=== PATIENT | female | born 1965 | race Caucasian/White ===

== ENCOUNTER 2023-11-17 12:22 | Observation (INO) | payer MEDICARE, MEDICAID, SELFPAY ==
[2023-11-17] VITALS (10 sets, daily range): BP systolic 96–121; BP diastolic 55–72
[2023-11-17 08:08] LABS: Urine Albumin Negative (Neg - Trace); Urine Bilirubin Negative (Negative); Urine Character Clear (Clear); Urine Color Yellow; Urine Glucose Negative (Negative); Urine Ketone Negative (Negative); Urine Leukocyte Negative (Negative); Urine Nitrite Negative (Negative); Urine Occult Blood Negative (Negative); Urine Specific Gravity 1.015 (<1.030); Urine Urobilinogen Negative (Neg - 1+)
--- NOTE | 2023-11-17 08:15 | ED.GENMED ---
History of Present Illness
General
Chief Complaint: Abdominal Symptoms
Source: patient
Exam Limitations: none
Time Seen by Provider: 11/17/23 07:52
Nursing documentation reviewed up to this point in time: agreed with
Travel History
Have you had any contact with someone who has COVID-19?: Unable to Answer
Do you have any symptoms of coronavirus? Fever > 100 degrees, chills, cough, shortness of breath, sore throat, loss of taste or smell, muscle aches, or headache?: Unable to Answer
History of Present Illness
History of Present Illness:
58 yo female presents to the emergency department complaining of an episode of vomiting reported by the facility, and then passing out on the couch. No injury reported. Patient has dementia, Down syndrome, with limited verbal abilities.
Past History
Past History
ED Past Medical History: Other (Down syndrome, hyperthyroidism)
ED Past Surgical History: None
Social History
Tobacco: Non-smoker
Personal: Single
Living: assisted living
Review of Systems
Review of Systems
Allergies reviewed?: Yes
All Other Systems: Not applicable
Cardiac: Reports syncope
ABD/GI: Reports vomiting
Phy Exam
Physical Exam
Physical Exam:
Physical Exam
General: afebrile
Neck: supple. no meningeal signs. normal posterior pharynx
Heart: s1/s2 regular rate and rhythm, no murmur. equal radial
pulses.
HEENT: Pupils equal round reactive to light, EOMI
Lungs: no acute respiratory distress. clear bilaterally
Abdomen: normal bowel sounds. not tender. no CVAT
Neuro: alert, oriented to self. no focal neurological deficits cranial nerves II through XII intact
Skin: no rash
Psychiatric: well kept
Extremities: no edema. no calf tenderness. negative homans. good distal pulses
Course
Orders/Labs/Results
Orders:
Orders
11/17/23 07:34
Electrocardiogram (*1) Urgent
Reason for Study: Syncope
11/17/23 07:35
EKG- Treatment ONCE
11/17/23 07:57
CMP [Comprehensive Metabolic Panel] Urgent
Complete Blood Count/With Diff Urgent
Cortisol, Random Urgent
Comment: ADD ON
Lipase Urgent
TSH Reflex To Free T4 Urgent
Urinalysis Reflex To Culture Urgent
Date Specimen was Collected: 11/17/23
Time Specimen was Collected: 07:36
11/17/23 08:07
0.9% Sodium Chloride 500 ml [Nss] 500 ml IV BOLUS
11/17/23 10:46
Speech Therapy Eval & Treat Routine
Treatment: pt has a hx of dysphagia, dementia, DOWNS.
11/17/23 11:44
Admit/Transfer Patient As Directed
Co-Sign Provider:
Level of Care: Observation services
Assign to:: Telemetry
Physician / Group: Artis Liu
Diagnosis: Syncope
Reason for Telemetry: Syncope
Date to Stop Telemetry: 11/19/23
Time to Stop Telemetry: 11:00
11/17/23 11:46
Code Status As Directed
Resuscitation Status: Full Code
11/19/23 11:00
DC Protocol for Telemetry ONCE
Abnormal Lab Results
11/17/23
07:57
MCH 32.4 H pg
(27.0-31.0)
Abs Immat Gran (auto) 0.1 H 10^3/uL
(0-0.05)
Absolute Lymphs (auto) 0.8 L 10^3/uL
(1.2-3.4)
Immature Gran % 1.6 H %
(0-0.5)
Lymphocytes % 15.2 L %
(20.5-51.1)
AST 52 H U/L
(14-36)
ALT 77 H U/L
(0-35)
Alkaline Phosphatase 208 H U/L
(38-126)
11/17/23 07:57
11/17/23 07:57
Vital Signs
Initial and Last Documented VS:
Initial Vital Signs
Temp Pulse Resp BP Pulse Ox
97.1 F 60 20 104/55 94
11/17/23 07:35 11/17/23 07:35 11/17/23 07:35 11/17/23 07:35 11/17/23 07:35
Last Documented Vital Signs
Temp Pulse Resp BP Pulse Ox
97.1 F 59 16 115/62 94
11/17/23 07:35 11/17/23 13:00 11/17/23 13:00 11/17/23 13:00 11/17/23 07:35
MDM/Problems Addressed
Differential Diagnosis Includes:
Dysrhythmia, syncope, vasovagal
MDM/Problems Addressed:
58-year-old female with vomiting, bradycardia, syncope. Admit to hospitalist. IV fluids given.
Chronic conditions affecting care: Other (Dementia, Down syndrome)
*Radiology
Radiology exam reviewed: radiology read reviewed (CT head no acute findings)
*Pulse Oximetry
Patient hypoxic: no
*EKG
Interpreted by ED Provider?: Yes
EKG Intrepretation Date: 11/17/23
EKG Intrepretation Time: 07:42
Interpretation: abnormal
Comparison EKG: no comparison EKG present
Heart Rate: 57
Rate: bradycardiac
Rhythm: sinus
[place]: normal axis
Interval: normal interval
QRS Pattern: normal QRS
Ischemia: no ischemia
*Mind Reader Interpretation
Rate: bradycardiac
Interpretation: abnormal
Heart Rate: 55
Rhythm: sinus
*Critical Care Note
Total Time (30-74mins, 75-104mins- exclusive of procedures): Not Applicable
Patient Management
Social determinants of health affecting care: Living situation
ED Attending Note
-
Portions of this chart may have been created with voice recognition software.� Occasional wrong word or��sound alike� substitutions may have occurred due to the inherent limitations of voice recognition software.
Discharge Plan
Departure
Patient Disposition: Admit
Date of Disposition: 11/17/23
Time of Disposition: 10:39
Admit to: Telemetry
Presentation/result/management discussed w/ accepting MD/DO: Hospitalist
Patient with high blood pressure during this ER visit?: No
Condition: Good
Discharge Problem:
Syncope, Bradycardia, sinus, Vomiting
Interventions
Interventions:
*Risk Screen - Suicide Last Done: 11/17/23 08:34
*General Assessment Last Done: 11/17/23 08:34
*Neglect/Abuse Screening Last Done: 11/17/23 08:34
ED- Fall Risk Assessment Last Done: 11/17/23 08:05
*ED COVID-19 Vaccine History Last Done: 11/17/23 08:34
CA-Ueizwk-Sysvxyxlwk Assessment Last Done: 11/17/23 08:06
ED- Cardiac Assessment Last Done: 11/17/23 08:05
ED- Neurological Assessment Last Done: 11/17/23 08:06
[2023-11-17 08:19] LABS: % Basophils 0.9 % (0-2); % Eosinophils 1.6 % (0-6); % Immature Granulocytes 1.6 % (0-0.5); % Lymphocytes 15.2 % (20.5-51.1); % Monocytes 9.3 % (1.7-9.3); % Neutrophils 71.4 % (42.2-75.2); ALT (SGPT) 77 U/L (0-35); AST (SGOT) 52 U/L (14-36); Absolute Basophils 0.1 10^3/uL (0-0.2); Absolute Eosinophils 0.1 10^3/uL (0-0.7); Absolute Immature Granulocytes 0.1 10^3/uL (0-0.05); Absolute Lymphocytes 0.8 10^3/uL (1.2-3.4); Absolute Monocytes 0.5 10^3/uL (0.1-0.6); Absolute Neutrophils 3.9 10^3/uL (1.4-6.5); Albumin 3.7 g/dl (3.5-5.0); Alkaline Phosphatase 208 U/L (38-126); Blood Urea Nitrogen 13 mg/dl (7-17); Calcium 9.3 mg/dl (8.4-10.2); Carbon Dioxide 26 mmol/L (22-30); Chloride 105 mmol/L (98-107); Glucose 99 mg/dl (70-99); Hematocrit 42.5 % (37.0-47.0); Hemoglobin 14.6 g/dL (12.0-16.0); Lipase 58 U/L (23-300); Mean Corp Hgb Conc. 34.4 g/dL (33.0-37.0); Mean Corpuscular Hgb 32.4 pg (27.0-31.0); Mean Corpuscular Volume 94.4 fL (81.0-99.0); Mean Platelet Volume 9.6 fL (7.4-10.4); Nucleated Red Blood Cells % 0 %; Platelet Count 280 10^3/uL (130-400); Potassium 4.6 mmol/L (3.5-5.1); Red Cell Dist. Width 13.2 % (11.5-14.5); Sodium 140 mmol/L (135-145); Total Bilirubin 0.4 mg/dl (0.2-1.3); Total Protein 6.8 g/dl (6.3-8.2); White Blood Cell Count 5.5 10^3/uL (4.8-10.8); eGFR > 60.00
[2023-11-17] MEDS: NSS 500 IV (08:33)
--- NOTE | 2023-11-17 11:39 | HPS.HSE ---
Family Physician
-
Family Physician: Goldie Mcdonough
Chief Complaint
-
Syncope, vomiting episode
History of Present Illness
Patient is a 58-year-old female with past medical history of Down syndrome, dementia, psoriasis, GERD, mitral/aortic regurgitation, hypothyroidism was brought in from retirement after patient was noted to have witnessed syncope. Patient not able to
provide any information and history has been gathered by patient resident care director at bedside. Apparently patient was noted to having some shaking followed by patient becoming unresponsive at the end of having episode of vomiting. Patient regained
consciousness and for 5 minutes. Patient was brought in to ER by ambulance and was noted to be bradycardic in ER. SBP was in 100s, patient was provided 500ml NS bolus. In ER patient awake and waking up to physical stimuli.
According to retirement staff patient overall condition has been declining, patient is not interested in doing any physical therapy/activity. Patient able to speak although at times does not verbalize her needs. No behavioral issues reported.
Medical History
Past Medical History
Past Medical History: Reports Other
Additional Past Medical History:
Down syndrome, dementia, psoriasis, GERD, mitral/aortic regurgitation, hypothyroidism
Past Surgical History: Reports Other
Social History
Tobacco: Non-smoker
Alcohol: None
Drug: None
Living: Other ([facility])
Family History
Family History: Not pertinent
Allergies / Home Medications
Allergies reflects when Allergies were last updated in [facility].
Home Medications with original date entered in [facility]
Allergy/Medication List:
Allergies
Allergy/AdvReac Type Severity Reaction Status Date / Time
Penicillins Allergy Unknown Verified 11/17/23 07:43
Home Medications
acetaminophen 325 mg tablet 650 mg PO Q4HPRN PRN mild pain 11/17/23
alclometasone 0.05 % topical ointment 1 applic topical BIDPRN PRN itch/rash 11/17/23
bismuth subsalicylate 262 mg chewable tablet (Pepto-Bismol) 2 tab PO HSPRN PRN diarrhea/upset stomach 11/17/23
carbamide peroxide 6.5 % ear drops (Ear Wax Drops) 4 drp EACH EAR WE@199911/17/23
dextromethorphan-guaifenesin 30 mg-600 mg tablet extended [id number] hr 1 tab PO [id number] PRN cough and conjestion 11/17/23
docusate sodium 100 mg capsule 100 mg PO BID 11/17/23
fluticasone propionate 50 mcg/actuation nasal spray,suspension 2 spray intranasal HS 11/17/23
ibuprofen 400 mg tablet 400 mg PO Q6HPRN PRN mild pain 11/17/23
ketoconazole 2 % topical cream 1 applic topical BID 11/17/23
levothyroxine 75 mcg tablet 75 mcg PO DAILY 11/17/23
lorazepam 0.5 mg tablet 0.5 mg PO DAILYPRN PRN take prior to dental/vision procedure 11/17/23
neomycin-bacitracn Zn-polymyx 3.5 mg-400 unit-5,000 unit/gram top oint (Triple Antibiotic) 1 applic topical TIDPRN PRN prevent infection 11/17/23
polyethylene glycol 3350 17 gram oral powder packet 17 grams PO HS 11/17/23
risperidone 0.25 mg tablet 0.25 mg PO HS 11/17/23
tacrolimus 0.1 % topical ointment 1 applic topical BIDPRN PRN eczema 11/17/23
therapeutic multivitamin 1 tab PO HS 11/17/23
Review of Systems
-
Unable to obtain full review of systems at this time due to: Patient Non-verbal
Physical Exam
Vital Signs
Vital Signs
Temp Pulse Resp BP Pulse Ox
97.1 F 58 16 99/57 94
11/17/23 07:35 11/17/23 11:00 11/17/23 11:00 11/17/23 11:00 11/17/23 07:35
Physical Exam
General: No Apparent Distress
HEENT: No Oxygen
Respiratory: Clear
Cardiac: S1/S2, Regular Rhythm and Bradycardia; No Murmur or Rub
GI: Soft, Non Tender and Non Distended; No Organomegaly
Rectal: Deferred by Provider
Musculoskeletal: No Clubbing, No Cyanosis and No Edema
Skin: No Rash
Neuro: Awake and Alert
Psych: Calm
Laboratory Results
-
11/17/23 07:57
11/17/23 07:57
Laboratory Results
Total Bilirubin 0.4 mg/dl (0.2-1.3) 11/17/23 07:57
AST 52 U/L (14-36) H 11/17/23 07:57
ALT 77 U/L (0-35) H 11/17/23 07:57
Alkaline Phosphatase 208 U/L (38-126) H 11/17/23 07:57
Lipase 58 U/L (23-300) 11/17/23 07:57
Impression/Plan
-
1. Syncope
-Patient had some abnormal body movement, no tongue bite/no previous history of seizure.
-syncope could be cardiac in nature with patient having persistent sinus bradycardia. Patient with history of Down syndrome and at risk of high degree blocks.
-Patient also had episode of vomiting and syncope may have been vasovagal in nature as well.
-Patient not on any antihypertensive/rate control medication.
-Check TSH/free T4. Patient blood pressure soft check random cortisol as well.
-Patient got 500 mL NS in ER. maintain on slow IVF for now.
-Check ortho vitals if patient could co-operate.
-Continue monitoring in telemetry
-Cardiology asked for further evaluation
2. Nausea/vomiting
-episode likely with syncope related
-prn zofran, recheck QTc in AM.
-check cxr to r/o aspiration episode
3. Down syndrome
Dementia w/o behavioral problems
-Patient not able to voice her needs
-Need assistance with activity
-no behavioral problems
4. Dysphagia
-some concern of difficulty swallowing food reported by caregiver
-ST eval ordered
Psoriasis
GERD
Mitral/aortic regurgitation
Hypothyroidism
DVT PPX - scd
DNR/DNI
Total time spent : 80 mins
I personally saw and examined the patient.
I have reviewed all diagnostic interpretations and treatment plans as written.
Time includes patient management by me, time spent at the patients bedside, time to review lab and imaging results, discussing patient care, documentation in the medical record, and time spent with the family or caregiver and discussing care plan
with RN/Consultants.
--- NOTE | 2023-11-17 12:29 | EDRN ---
Family states that historically, Carmenza ' holds on to her urine'. Depends dry
--- NOTE | 2023-11-17 13:55 | CON.CAR ---
Addendum entered and electronically signed by Aj Best MD 11/17/23 15:17:
I saw and examined the patient.
The Director Of Assessing's note was reviewed and I agree with the note.
Comment:
GEN: No distress, awake, not following commands
HEENT: supple, anicteric, mmm
LUNGS: CTA, no wheezes/rales
CV: Reg, S1/S2, 1/6 syst LSB, no gallop
ABD: soft, BS+, NT/ND
EXT: No edema
NEURO: Gross non-focal
SKIN: No rash
plan:
She has a past medical history of Down syndrome, hypothyroidism, and dementia. No known history of congenital heart disease. She presents today with an episode of vomiting and syncope/unresponsiveness. She does have baseline dementia. She was
found initially to have heart rates in the 40s. Currently she is in a sinus bradycardia at 57 bpm. Per her sister she does have some sinus bradycardia at rest. She denies any chest pains or previous episodes like this.
At this point I would follow on telemetry, check TSH, and treat her conservatively. ? vagal episode
We will repeat an echocardiogram although she has no prior history of significant congenital heart disease.
Original Note:
Medical History
-
History of Present Illness:
HPI: Carmenza is a 58 year old female with PMH of down syndrome, hypothyroidism, dementia, GERD, mitral regurgitation, and aortic regurgitation who presented to [facility] after syncopal episode at her alf. She reportedly had an episode of
vomiting and then lost consciousness. Per her sister, patient was mostly unresponsive until she arrived in ER. Initial EKG showed sinus bradycardia with HR 57 beats per minute. While on telemetry, HR at times does drop into the 40s. No significant
pauses noted. She is not on any AV reese blockers. She has no significant cardiac history other than mild mitral and aortic regurgitation. She is not followed by cardiology. Family denies history of syncope. Workup otherwise in the ER unremarkable
with stable blood count and electrolytes. Her BP is stable on the lower side of normal, and she does not take any antihypertensive medications as OP. Cardiology consulted for evaluation given syncope and bradycardia
PMH:
Down syndrome
Hypothyroidism
Dementia
Dysphagia
Psoriasis
Mitral regurgitation
Aortic regurgitation
GERD
Past Medical History
Past Medical History: Other (In HPI)
Social History
Tobacco: Non-Smoker
Alcohol: None
Drug: None
Personal: Single
Living: Other (longterm)
Family History
Family History: Reviewed & Not Pertinent
Allergies / Home Medications
Allergy/AdvReac Type Severity Reaction Status Date / Time
Penicillins Allergy Unknown Verified 11/17/23 07:43
�Medication �Instructions �Recorded �Confirmed �Type
acetaminophen 325 mg tablet 650 mg PO Q4HPRN PRN mild pain 11/17/23 11/17/23 History
alclometasone 0.05 % topical 1 applic topical BIDPRN PRN 11/17/23 11/17/23 History
ointment itch/rash
bismuth subsalicylate 262 mg 2 tab PO HSPRN PRN diarrhea/upset 11/17/23 11/17/23 History
chewable tablet (Pepto-Bismol) stomach
carbamide peroxide 6.5 % ear drops 4 drp EACH EAR WE@199911/17/23 11/17/23 History
(Ear Wax Drops)
dextromethorphan-guaifenesin 30 1 tab PO [id number] PRN cough and 11/17/23 11/17/23 History
mg-600 mg tablet extended conjestion
[id number] hr
docusate sodium 100 mg capsule 100 mg PO BID 11/17/23 11/17/23 History
fluticasone propionate 50 2 spray intranasal HS 11/17/23 11/17/23 History
mcg/actuation nasal
spray,suspension
ibuprofen 400 mg tablet 400 mg PO Q6HPRN PRN mild pain 11/17/23 11/17/23 History
ketoconazole 2 % topical cream 1 applic topical BID 11/17/23 11/17/23 History
levothyroxine 75 mcg tablet 75 mcg PO DAILY 11/17/23 11/17/23 History
lorazepam 0.5 mg tablet 0.5 mg PO DAILYPRN PRN take prior 11/17/23 11/17/23 History
to dental/vision procedure
neomycin-bacitracn Zn-polymyx 3.5 1 applic topical TIDPRN PRN 11/17/23 11/17/23 History
mg-400 unit-5,000 unit/gram top prevent infection
oint (Triple Antibiotic)
polyethylene glycol 3350 17 gram 17 grams PO HS 11/17/23 11/17/23 History
oral powder packet
risperidone 0.25 mg tablet 0.25 mg PO HS 11/17/23 11/17/23 History
tacrolimus 0.1 % topical ointment 1 applic topical BIDPRN PRN eczema 11/17/23 11/17/23 History
therapeutic multivitamin 1 tab PO HS 11/17/23 11/17/23 History
Review of Systems
-
Unable to obtain full review of systems at this time due to: Dementia
History Source: Family (Sister, customer logistics manager at bedside)
All other systems: Negative unless noted
Physical Exam
Vital Signs
Temp Pulse Resp BP Pulse Ox
97.1 F 59 16 115/62 94
11/17/23 07:35 11/17/23 13:00 11/17/23 13:00 11/17/23 13:00 11/17/23 07:35
Lab Results
11/17/23 07:57
11/17/23 07:57
Physical Exam
General: Well Developed, Well Nourished and No Apparent Distress
HEENT: Normocephalic, Anicteric and Moist Mucous Membranes
Respiratory: Clear and Non Labored Respirations
Cardiac: S1/S2, Regular Rhythm and Murmur
Musculoskeletal: No Clubbing, No Cyanosis and No Edema
Skin: Warm
Neuro: Awake and Alert
Psych: Calm
Impression / Plan
-
PCP: Elisa Panchal
Roller Maker: None prior to arrival, initially seen by Dr. Best
Impression:
Vomiting
Syncope
Bradycardia
Elevated LFTs
Down syndrome
Hypothyroidism
Dementia
Dysphagia
Psoriasis
Mitral regurgitation
Aortic regurgitation
GERD
Echo 12/22/2020: EF 60%, no RWMA, mild MR, mild AR, mild TR, estimated PAP 34-39 mmHg
Echo 11/17/2023: Study pending
Plan:
-Presented after syncopal episode. Reportedly was vomiting and then lost consciousness. No known h/o syncope.
-Bradycardia noted with HR into the 40s at times. Not on any AV reese blockers as OP and would continue to avoid for now.
-Follow on telemetry. May consider OP monitor if persistent bradycardia noted.
-Check TSH. On levothyroxine as OP.
-K stable at 4.6.
-Prior echo w/ preserved EF and mild MR, mild AR. Repeat this admission.
-Check orthostatic VS. BP borderline, not on any antihypertensives.
-CT of head pending. Await results.
-Elevated LFTs noted w/ reported episode of vomiting. Defer to primary service. Given fluid bolus in ER.
HPI: Carmenza is a 58 year old female with PMH of down syndrome, hypothyroidism, dementia, GERD, mitral regurgitation, and aortic regurgitation who presented to [facility] after syncopal episode at her alf. She reportedly had an episode of
vomiting and then lost consciousness. Per her sister, patient was mostly unresponsive until she arrived in ER. Initial EKG showed sinus bradycardia with HR 57 beats per minute. While on telemetry, HR at times does drop into the 40s. No significant
pauses noted. She is not on any AV reese blockers. She has no significant cardiac history other than mild mitral and aortic regurgitation. She is not followed by cardiology. Family denies history of syncope. Workup otherwise in the ER unremarkable
with stable blood count and electrolytes. Her BP is stable on the lower side of normal, and she does not take any antihypertensive medications as OP. Cardiology consulted for evaluation given syncope and bradycardia
Data Reviewed
-
EKG: Tracing Personally Visualized and interpreted
Labs: Labs Reviewed by me
Old Records: Reviewed
[2023-11-17 15:07] LABS: TSH Reflex To Free T4 3.17 uIU/ml (0.47-4.68)
[2023-11-17 16:46] LABS: Cortisol, Random 17.6 ug/dl
[2023-11-17] MEDS: NSS 1000 IV (17:03)
[2023-11-17] MEDS: COLACE 100 MG PO (20:43)
[2023-11-17] MEDS: NIZORAL 2% CREAM 1 APPLIC TOPICAL (20:43)
[2023-11-17] MEDS: RISPERDAL 0.25 MG PO (21:22)
[2023-11-18] VITALS (7 sets, daily range): BP systolic 100–128; BP diastolic 45–69; PULSE 56–69
[2023-11-18] MEDS: SYNTHROID PO (05:24)
[2023-11-18 08:23] LABS: Hemoglobin 13.2 g/dL (12.0-16.0); Mean Corp Hgb Conc. 33.8 g/dL (33.0-37.0); Mean Corpuscular Hgb 32.3 pg (27.0-31.0); Mean Corpuscular Volume 95.4 fL (81.0-99.0); Mean Platelet Volume 9.6 fL (7.4-10.4); Platelet Count 295 10^3/uL (130-400); Red Blood Cell Count 4.09 10^6/uL (4.20-5.40); Red Cell Dist. Width 13.2 % (11.5-14.5); White Blood Cell Count 4.4 10^3/uL (4.8-10.8)
[2023-11-18] MEDS: NIZORAL 2% CREAM 1 APPLIC TOPICAL ×2 (08:31→22:28)
[2023-11-18] MEDS: COLACE 100 MG PO ×2 (08:31→22:28)
[2023-11-18] MEDS: NSS 1000 IV (08:32)
[2023-11-18 08:54] LABS: Blood Urea Nitrogen 11 mg/dl (7-17); Carbon Dioxide 28 mmol/L (22-30); Chloride 104 mmol/L (98-107); Estimated Creatinine Clearance 66 ml/min; Glucose 84 mg/dl (70-99); Sodium 139 mmol/L (135-145); eGFR > 60.00
[2023-11-18 09:04] LABS: Calcium 8.9 mg/dl (8.4-10.2); Potassium 4.4 mmol/L (3.5-5.1)
--- NOTE | 2023-11-18 09:23 | W.PN.CARDCBS ---
Addendum entered and electronically signed by Azael Stewart MD 11/18/23 15:59:
She appears comfortable, watching 'Frozen' no complaints, verbalizes but hard to understand, smiles
PMH/PSH/FH/SH: Reviewed
Allergies: Penicillin
Outpatient cardiac meds: None
Current medications: Risperdal Colace levothyroxine
Review of systems: Not readily obtainable
106/58, pulse 59, respiratory rate 18, weight is 49.1 kg as of yesterday, head neck exam unremarkable, lungs are clear, regular rate and rhythm, no murmurs JVD okay, extremities without clubbing cyanosis or edema, pulses palpable, neuro nonfocal
Hemoglobin 13.2, BUN and creatinine 11 and 0.6 with a potassium of 4.4, AST and ALT are 43/67 with alk phos of 204, normal bilirubin
Echo: EF 55-60%, moderate AI, mild MR, moderate TR, pulmonary artery systolic pressure 30-35 mmHg
Telemetry: Periods of bradycardia 40 and sometimes less, probably during sleep
Plan:
Despite presumed vasovagal syncope, she appears stable. She is on no AV reese blocking agents.
At this point, given that she is clinically well, our strategy should be conservative.
Would not make any changes in her regimen. Would not investigate further. I am not certain that she would wear a monitor for a week or 2.
Okay to proceed with discharge planning.
At this point, in the absence of further episodes she does not need cardiac follow-up. If additional episodes of syncope or other cardiac issues occur, we can reevaluate her as an outpatient.
We will sign off, please call if questions.
Original Note:
Today's Communication / Plan
-
Continue to follow on telemetry while admitted
Avoid AV reese blockers
Check orthostatic VS if able
Impression / Plan
-
PCP: Elisa Panchal
Phlebotomy Director: None prior to arrival, initially seen by Dr. Best
Impression:
Vomiting
Syncope
Bradycardia
Elevated LFTs
Down syndrome
Hypothyroidism
Dementia
Dysphagia
Psoriasis
Mitral regurgitation
Aortic regurgitation
GERD
Echo 12/22/2020: EF 60%, no RWMA, mild MR, mild AR, mild TR, estimated PAP 34-39 mmHg
Echo 11/17/2023: EF 55 to 60%, moderate AI, moderate TR, trace VA
Plan:
-Presented after syncopal episode. Reportedly was vomiting and then lost consciousness. No known h/o syncope.
-Bradycardia noted with HR into the 40s at times. Not on any AV reese blockers as OP and would continue to avoid.
-On review of telemetry overnight, still w/ episodes of bradycardia w/ HR into 30s and 40s at times. Patient seems to be asymptomatic with these episodes
-TSH within normal limits at 3.17, continue levothyroxine. K stable.
-Echo 11/16 with preserved EF and moderate AI, slightly progressed compared to 2020.
-Check orthostatic VS if able. BP borderline, not on any antihypertensives.
-CT of head negative for acute intracranial abnormality.
-Elevated LFTs noted w/ reported episode of vomiting. Defer to primary service.
HPI: Carmenza is a 58 year old female with PMH of down syndrome, hypothyroidism, dementia, GERD, mitral regurgitation, and aortic regurgitation who presented to [facility] after syncopal episode at her longterm. She reportedly had an episode of
vomiting and then lost consciousness. Per her sister, patient was mostly unresponsive until she arrived in ER. Initial EKG showed sinus bradycardia with HR 57 beats per minute. While on telemetry, HR at times does drop into the 40s. No significant
pauses noted. She is not on any AV reese blockers. She has no significant cardiac history other than mild mitral and aortic regurgitation. She is not followed by cardiology. Family denies history of syncope. Workup otherwise in the ER unremarkable
with stable blood count and electrolytes. Her BP is stable on the lower side of normal, and she does not take any antihypertensive medications as OP. Cardiology consulted for evaluation given syncope and bradycardia
Progress Note - Phlebotomy Director
Subjective
Date of Service: November 18, 2023
No complaints, resting comfortably in bed.
Objective
Labs:
11/18/23 08:01
11/18/23 08:01
Labs
Hgb 13.2 g/dL (12.0-16.0) 11/18/23 08:01
Hct 39.0 % (37.0-47.0) 11/18/23 08:01
Plt Count 295 10^3/uL (130-400) 11/18/23 08:01
Sodium 139 mmol/L (135-145) 11/18/23 08:01
Potassium 4.4 mmol/L (3.5-5.1) 11/18/23 08:01
BUN 11 mg/dl (7-17) 11/18/23 08:01
Creatinine 0.6 mg/dL (0.6-1.0) 11/18/23 08:01
Glucose 84 mg/dl (70-99) 11/18/23 08:01
Vital Signs and I&O:
Vital Signs
Temp Pulse Resp BP Pulse Ox
98.6 F 50 18 111/57 97
11/18/23 07:30 11/18/23 07:30 11/18/23 07:30 11/18/23 07:30 11/18/23 07:30
Vital Signs
Temp Pulse Resp BP Pulse Ox
98.6 F 50 18 111/57 97
11/18/23 07:30 11/18/23 07:30 11/18/23 07:30 11/18/23 07:30 11/18/23 07:30
Intake & Output
11/16/23 11/17/23 11/18/23 11/19/23
06:59 06:59 06:59 06:59
Intake Total 120 / 120
Output Total 800 / 800
Balance -680 / -680
Physical Exam
Physical Exam
GEN: No distress, awake, alert, resting comfortably in bed
HEENT: supple, anicteric, mmm
LUNGS: CTA b/l, no wheezes/rales
CV: Reg, S1/S2, 1/6 murmur
EXT: No clubbing, cyanosis, or edema
NEURO: Gross non-focal
SKIN: Warm, dry, no rash
--- NOTE | 2023-11-18 10:55 | PTOTSP ---
Dysphagia Evaluation
Patient with history of mild-moderate oral and mild pharyngeal dysphagia, signs of esophageal dysphagia, but no aspiration on last known outpatient video swallow study 04/25/2015. Ground solids, thin liquids recommended at that time. Risk factors
for dysphagia: Down syndrome, dementia, GERD.
Suspect patient's oral stage of swallowing is at baseline. CXR with 'pneumonia lower right lung'. No signs concerning for aspiration observed. Vomiting episode noted prior to admission. Cannot r/o worsened pharyngeal dysphagia bedside. If
concerned for silent aspiration consider ordering video swallow study pending GOC.
Recommend:
1. IDDSI Level 5 Minced/Moist, IDDSI Level 0 Thin Liquids via CUP
2. Medications - in puree (crushed)
3. Strategies: upright to 90 degrees, small single sips/bites, slow rate, ensure patient swallows before next sip/bite, alternate solids/liquids, remain upright for 30 minutes after PO intake as a reflux precaution
4. Consider video swallow study pending GOC.
[2023-11-18 11:31] LABS: ALT (SGPT) 67 U/L (0-35); AST (SGOT) 43 U/L (14-36); Albumin 3.4 g/dl (3.5-5.0); Alkaline Phosphatase 204 U/L (38-126); Direct Bilirubin 0.3 mg/dl (0.0-0.4); Total Bilirubin 0.5 mg/dl (0.2-1.3); Total Protein 6.3 g/dl (6.3-8.2)
--- NOTE | 2023-11-18 13:07 | CM ---
Addendum entered by Cheryl Wood 11/18/23 16:02:
PT/OT jud (P)
Braulio updated re possible d/c back to [facility] tomorrow.
Spency will be secondary special education teacher, please call her if patient is or is not being d/c, phone# [phone].
[facility]
Report: Spency at phone# [phone]

Address for [facility]: [address] [place] [id number] (address on the demographics is the office)
ambulance transport forms on chart.
Original Note:
Patient seen bedside with Nurse from [facility] (snf)
IA completed.
Patient is a resident at [facility], require 24 hour care.
patient has a sister and Nurse Braulio will keep her updated.
Patient ambulates with much encouragement with hand held assist of 1.
Patient does have difficulty with thresholds (even if they are flat, just let her know its ok).
Patient also is transported via transport chair.
Patient does not feed herself, Per her nurse Braulio, patient has no difficulty swallowing.
Patient is incontinent of B+B, wears a depends.
Patient has difficulty seeing due to cataracts and eye MD does not think patient is a good candidate for surgery.
Patient has recently started with calling out for no reason and has been started on Risperdal.
PCP: mobile MD thru [place] [facility]- Elisa ZARATE [phone] (Monalisa will answer her phone)
Pharmacy: [facility] [place]
Updates to RN from [facility]- Braulio- office # [phone] extension [phone] to leave a message, or to speak with her cell phone # [phone] she is available M-F.
Weekend RN will be Spency and her number is [phone]. Leslie will call for updates with nursing tomorrow between -12.
CM number given to Braulio.
[facility]
Report# Braulio [phone] M-F, Spency on the weekend [phone]
(goes directly to nursing)
Per Braulio, they would prefer a Tuesday transfer, no nurse onsite over the weekend, but could make arrangements if need be.
Patient will require ambulance transport on d/c.
[facility] form completed.
--- NOTE | 2023-11-18 15:10 | W.PN.HOSP.TC ---
Today's Communication/Plan
-
see note
Assessment / Plan
Assessment / Plan
1. Syncope - Presumed vasovagal
-Patient had some abnormal body movement, no tongue bite/no previous history of seizure.
-syncope could be cardiac in nature with patient having persistent sinus bradycardia. Patient with history of Down syndrome and at risk of high degree blocks.
-Patient also had episode of vomiting and syncope may have been vasovagal in nature as well.
-Patient not on any antihypertensive/rate control medication.
-TSH and random cortisol wnl.
-Patient got 500 mL NS in ER. maintain on slow IVF for now.
-Partial ortho vitals with supine to sitting negative.
-No telemetry events
-TTE showed preserved EF, no valvulopathy
2. Nausea/vomiting - resolved
-episode likely with syncope related
-prn Zofran, recheck QTc in AM.
-check cxr to r/o aspiration episode
3. Down syndrome
Dementia w/o behavioral problems
-Patient not able to voice her needs
-Need assistance with activity
-no behavioral problems
4. Dysphagia
-some concern of difficulty swallowing food reported by caregiver
-ST eval cleared. on IDDSI 5 and thin liquid
5. LFT elevation
-trending down
-not on statin
-check Liver abd US with episode of vomiting
Psoriasis
GERD
Mitral/aortic regurgitation
Hypothyroidism
DVT PPX - scd
DNR/DNI
Anticipated Discharge: Within 24 hours
Subjective/Interval History
-
Date of Service: November 18, 2023
no problems overnight
denies of having any problems
Objective Data
-
Labs:
Laboratory Results
11/18/23 11/18/23
08:01 10:01
WBC 4.4 L
Hgb 13.2
Hct 39.0
Plt Count 295
Sodium 139
Potassium 4.4
Chloride 104
Carbon Dioxide 28
BUN 11
Creatinine 0.6
Glucose 84
Calcium 8.9
Total Bilirubin 0.5 Cancelled
AST 43 H Cancelled
ALT 67 H Cancelled
Alkaline Phosphatase 204 H Cancelled
Vital Signs:
Vital Signs
Temp Pulse Resp BP Pulse Ox
98.4 F 59 18 106/58 91
11/18/23 11:42 11/18/23 11:42 11/18/23 11:42 11/18/23 11:42 11/18/23 11:42
I&O
11/17/23 11/18/23 11/19/23
06:59 06:59 06:59
Intake Total 120 / 120 840 / 840
Output Total 800 / 800
Balance -680 / -680 840 / 840
Review of Systems
-
Unable to obtain full review of systems at this time due to: Dementia and Acuity
Physical Exam
-
General: Comfortable
HEENT: Negative Oxygen
Respiratory: Clear to Auscultation
Cardiac: Regular Rhythm and S1/S2; Negative Murmur or Rub
GI: Soft, Nontender and Nondistended
Musculoskeletal: No Edema
Neuro: Awake and Alert
Psych: Calm
[2023-11-18] MEDS: RISPERDAL 0.25 MG PO (22:30)
[2023-11-19 03:00] VITALS: BP 99/56
[2023-11-19] MEDS: SYNTHROID 75 MCG PO (05:55)
[2023-11-19 07:35] VITALS: BP 122/66
[2023-11-19] MEDS: NIZORAL 2% CREAM 1 APPLIC TOPICAL (08:38)
[2023-11-19] MEDS: COLACE 100 MG PO (08:39)
[2023-11-19 11:00] VITALS: BP 108/62
[2023-11-19 11:49] VITALS: BP 98/59
[2023-11-19 11:53] VITALS: BP 98/59
--- NOTE | 2023-11-19 12:01 | W.PN.HOSP.TC ---
Today's Communication/Plan
-
d/c to assisted
Assessment / Plan
Assessment / Plan
1. Syncope - Presumed vasovagal
-Patient had some abnormal body movement, no tongue bite/no previous history of seizure.
-syncope could be cardiac in nature with patient having persistent sinus bradycardia. Patient with history of Down syndrome and at risk of high degree blocks.
-Patient also had episode of vomiting and syncope may have been vasovagal in nature as well.
-Patient not on any antihypertensive/rate control medication.
-TSH and random cortisol wnl.
-Patient got 500 mL NS in ER. maintain on slow IVF for now.
-Partial ortho vitals with supine to sitting negative.
-No telemetry events
-TTE showed preserved EF, no valvulopathy
2. Nausea/vomiting - resolved
-episode likely with syncope related
-prn Zofran, recheck QTc in AM.
-check cxr to r/o aspiration episode
3. Down syndrome
Dementia w/o behavioral problems
-Patient not able to voice her needs
-Need assistance with activity
-no behavioral problems
4. Dysphagia
-some concern of difficulty swallowing food reported by caregiver
-ST eval cleared. on IDDSI 5 and thin liquid
5. LFT elevation
Cholelithiasis
-trending down
-not on statin
-Liver/GB showing cholelithiasis. CBD 5 mm.
-no tenderness on RUQ exam, no concern angelina.
Psoriasis
GERD
Mitral/aortic regurgitation
Hypothyroidism
DVT PPX - scd
DNR/DNI
More than 30 minutes spent in discharge including
Final examination of the patient
Summarizing hospital stay
Instructions for continuing care to all relevant caregivers
Preparation of discharge records, prescriptions, and referral forms
Total time spent (in minutes): 38 mins
Anticipated Discharge: Today
Subjective/Interval History
-
Date of Service: November 19, 2023
no reported nausea/vomiting
no other issues
Objective Data
-
Vital Signs:
Vital Signs
Temp Pulse Resp BP Pulse Ox
98.1 F 58 18 108/62 98
11/19/23 11:00 11/19/23 11:00 11/19/23 11:00 11/19/23 11:00 11/19/23 11:00
I&O
11/18/23 11/19/23 11/20/23
06:59 06:59 06:59
Intake Total 120 / 120 2319
Output Total 800 / 800
Balance -680 / -680 2319
Review of Systems
-
Unable to obtain full review of systems at this time due to: Dementia and Acuity
Physical Exam
-
General: Comfortable
HEENT: Negative Oxygen
Respiratory: Clear to Auscultation
Cardiac: Regular Rhythm and S1/S2; Negative Murmur or Rub
GI: Soft, Nontender and Nondistended
Musculoskeletal: No Edema
Neuro: Awake and Alert
Psych: Calm
--- NOTE | 2023-11-19 12:15 | CM ---
Chart reviewed. Plan for discharge today back to [facility]. Message left for Spency to notify of discharge. CM remains available.
[facility]
Report: Spency at phone# [phone]
[2023-11-19 15:30] VITALS: BP 106/64
--- NOTE | 2023-11-20 14:45 | W.DCSUMMARY ---
Discharge Summary
Discharge Data
Date of Admission: 11/17/23
Date of Discharge: 11/19/23
-
Pending Results: No
Hospital Course
Discharging Physician : Dr Artis Liu
Disposition : nursing home
Primary care physician : Dr Goldie Mcdonough
Principal Discharge diagnosis :
Syncope, presumed vasovagal
Episode of nausea/vomiting
Elevated liver enzymes
Chronic Discharge diagnosis :
Down syndrome
Dementia without behavioral problems
History of psoriasis
Gastroesophageal reflux disease
Mitral/aortic regurgitation
Hypothyroidism
Hospital Course :
Patient is 58-year-old female who was brought in from correction after patient was noted to having brief episode of syncope and vomiting episode. Patient was noted to be bradycardic in ER. No previous history of syncope and although there was some
body movement there was no true seizure-like activity noted. Patient does not have any history of previous seizure. Clinically this was felt to be vasovagal in nature. Cardiology was involved in care for evaluation patient had
echocardiogram/overnight telemetry monitoring/TSH/random cortisol check/orthostatic vitals checked and all were negative. Patient did not have any further problems and was discharged to correction.
Patient also noted to be having minimal transaminitis, with reported nausea vomiting and right upper quadrant ultrasound was done which showed cholelithiasis without signs of cholecystitis. LFTs are trending down. No further intervention required.
Important imaging findings :
None
Procedure findings :
None
Discharge Plan
-
Patient Disposition: Other
Discharge Diagnosis/Procedures: Vasovagal syncope, Bradycardia
Condition: Fair
Diet: Regular
Activity: As tolerated
Driving Restrictions: No driving
Referrals:
Goldie Mcdonough, DO [Family Provider] - in one week
Prescriptions:
Continued
acetaminophen 325 mg Tablet
650 mg PO Q4HPRN PRN (Reason: mild pain)
Triple Antibiotic 3.5mg-400 unit- 5,000 unit/gram Ointment
1 applic TOPICAL TIDPRN PRN (Reason: prevent infection)
Rx Instructions:
apply to cuts and abrasions
risperidone 0.25 mg Tablet
0.25 mg PO HS
therapeutic multivitamin Tablet
1 tab PO HS
levothyroxine 75 mcg Tablet
75 mcg PO DAILY
lorazepam 0.5 mg Tablet
0.5 mg PO DAILYPRN PRN (Reason: take prior to dental/vision procedure)
tacrolimus 0.1 % Ointment
1 applic TOPICAL BIDPRN PRN (Reason: eczema)
ibuprofen 400 mg Tablet
400 mg PO Q6HPRN PRN (Reason: mild pain)
Ear Wax Drops 6.5 % Drops
4 drp EACH EAR WE@2000
docusate sodium 100 mg Capsule
100 mg PO BID
bismuth subsalicylate [Pepto-Bismol] 262 mg Tablet,Chewable
2 tab PO HSPRN PRN (Reason: diarrhea/upset stomach)
alclometasone 0.05 % Ointment
1 applic TOPICAL BIDPRN PRN (Reason: itch/rash)
Rx Instructions:
apply to arms and neck
dextromethorphan-guaifenesin 30-600 mg Tablet Extended Release 12 Hr
1 tab PO [id number] PRN (Reason: cough and conjestion)
ketoconazole 2 % Cream
1 applic TOPICAL BID
Rx Instructions:
apply to plantar and dorsal of both feet
fluticasone propionate 50 mcg/actuation [place],Suspension
2 spray INTRANASAL HS
polyethylene glycol 3350 17 GRAMS powder in packet
17 grams PO HS
Discharge Orders:
Discharge Patient (As Directed); Ordered 11/19/23
Ordered By: Artis Liu
Discharge Date and Time
Discharge Date/Time: 11/19/23 16:12
Print Language: KENYAN
== END 2023-11-19 16:12 | disposition home or self-care (01) ==
LOC: 4 WEST ACU 12:22
PROVIDERS: ADMITTING PHYSICIAN Hospitalist; CONSULT PHYSICIAN Internal Medicine Cardiovascular Disease; EMERGENCY PHYSICIAN Emergency Medicine; FAMILY PHYSICIAN Internal Medicine
DX: R55 Syncope and collapse (principal); R00.1 Bradycardia, unspecified; R10.9 Unspecified abdominal pain; Q90.9 Down syndrome, unspecified; G31.9 Degenerative disease of nervous system, unspecified; L40.9 Psoriasis, unspecified; K80.20 Calculus of gallbladder without cholecystitis without obstruction; E03.9 Hypothyroidism, unspecified; K21.9 Gastro-esophageal reflux disease without esophagitis; R13.10 Dysphagia, unspecified; F03.90 Unspecified dementia, unspecified severity, without behavioral disturbance, psychotic disturbance, mood disturbance, and anxiety; I08.0 Rheumatic disorders of both mitral and aortic valves; Z66 Do not resuscitate; Z88.0 Allergy status to penicillin; Z79.890 Hormone replacement therapy
CPT/HCPCS: 51701; 70450; 71045; 76700; 80053; 81003; 82248; 82533; 83690; 84443; 85025; 85027; 87070; 87147; 92610; 93005; 93306; 96360; 97162; 97166; 99285; G0378

== ENCOUNTER 2023-12-09 12:14 | Inpatient (IN) | payer MEDICARE, MEDICAID, SELFPAY ==
[2023-12-07] VITALS (9 sets, daily range): BP systolic 110–137; BP diastolic 52–70
[2023-12-07 11:30] LABS: Glucose - Point of Care 92 mg/dl (70-99)
--- NOTE | 2023-12-07 11:31 | ED.GENMED ---
History of Present Illness
General
Chief Complaint: Change in Mental Status
Source: patient
Exam Limitations: none
Time Seen by Provider: 12/07/23 11:26
Nursing documentation reviewed up to this point in time: agreed with
History of Present Illness
History of Present Illness:
58-year-old female presents emergency room due to a syncope episode. She has Down syndrome and dementia. Is unclear how long she was down after syncope.
Past History
Past History
ED Past Medical History: Other (Down syndrome, hyperthyroidism)
ED Past Surgical History: None
Social History
Tobacco: Non-smoker
Personal: Single
Living: assisted living
Review of Systems
Review of Systems
Allergies reviewed?: Yes
All Other Systems: Not applicable
Constitutional: Reports no symptoms
EENT: Reports no symptoms
Respiratory: Reports no symptoms
Cardiac: Reports syncope
ABD/GI: Reports no symptoms
: Reports no symptoms
Musculoskeletal: Reports no symptoms
Skin: Reports no symptoms
Neurological: Reports other (Nonverbal, moves all extremities)
Endocrine: Reports no symptoms
Hematologic/Lymphatic: Reports no symptoms
Psychiatric: Reports no symptoms
Phy Exam
Physical Exam
Physical Exam:
Physical Exam
General: no apparent distress, not acutely ill
Neck: supple. no meningeal signs. normal posterior pharynx
Heart: s1/s2 regular rate and rhythm, no murmur. equal radial
pulses.
HEENT: Pupils equal round reactive to light, EOMI
Lungs: no acute respiratory distress. clear bilaterally
Abdomen: normal bowel sounds. not tender. no CVAT
Neuro: alert, moves all extremities. no focal neurological deficits cranial nerves II through XII intact
Skin: no rash
Psychiatric: well kept. interactive and cooperative
Extremities: no edema. no calf tenderness. negative homans. good distal pulses
Course
Orders/Labs/Results
Orders:
Orders
12/07/23 11:28
EKG [Electrocardiogram (*1)] Urgent
Reason for Study: Fatigue / Weakness
CT Head W/o Iv Contrast Urgent
Comment:
Reason For Exam: syncope, altered mental status
Cardiac Monitoring- Treatment ONCE
EKG- Treatment ONCE
Pulse Ox/cont/shift [RESP] Stat
Quantity: 1
12/07/23 11:30
Electrocardiogram (*1) Stat
Reason for Study: Other
Other Reason for Exam: neuro symptoms
EKG- Treatment ONCE
12/07/23 11:49
Basic Metabolic Panel Urgent
Complete Blood Count/With Diff Urgent
Abnormal Lab Results
12/07/23
11:49
MCH 32.4 H pg
(27.0-31.0)
MPV 10.7 H fL
(7.4-10.4)
Absolute Lymphs (auto) 0.9 L 10^3/uL
(1.2-3.4)
Immature Gran % 0.6 H %
(0-0.5)
Lymphocytes % 18.6 L %
(20.5-51.1)
12/07/23 11:49
12/07/23 11:49
Vital Signs
Initial and Last Documented VS:
Initial Vital Signs
Temp Pulse Resp BP Pulse Ox
98.7 F 49 18 137/68 95
12/07/23 11:22 12/07/23 11:22 12/07/23 11:22 12/07/23 11:22 12/07/23 11:22
Last Documented Vital Signs
Temp Pulse Resp BP Pulse Ox
98.7 F 50 12 128/61 99
12/07/23 11:22 12/07/23 13:15 12/07/23 13:15 12/07/23 13:00 12/07/23 13:15
MDM/Problems Addressed
Differential Diagnosis Includes:
Symptomatic bradycardia, dysrhythmia
MDM/Problems Addressed:
58-year-old female with syncope episode, dysrhythmia down to the 30s. Recurrent episode. Admit to hospitalist.
Chronic conditions affecting care: Other (Downs, dementia)
*Radiology
Radiology exam reviewed: radiology read reviewed (ct head nad)
*Pulse Oximetry
Patient hypoxic: no
*EKG
Interpreted by ED Provider?: Yes
EKG Intrepretation Date: 12/07/23
EKG Intrepretation Time: 11:30
Interpretation: abnormal
Comparison EKG: no changes
Heart Rate: 51
Rate: bradycardiac
Rhythm: sinus
[place]: normal axis
Interval: normal interval
QRS Pattern: normal QRS
Ischemia: no ischemia
*Sensor Specialist Interpretation
Rate: bradycardiac
Interpretation: abnormal
Heart Rate: 35
Rhythm: sinus and other (intermittent 2nd degree av block)
*Critical Care Note
Total Time (30-74mins, 75-104mins- exclusive of procedures): Not Applicable
Data Reviewed
Review of Other/Old Records Reveals: Records (prior admit for syncope with bradycardia)
Source: records
Patient Management
Social determinants of health affecting care: Living situation
Discussion with other providers: Hospitalist and Plating Technician (cardiology, Dr. Kiser)
Escalation/DeEscalation of care consider admission/obs:
admit indicated
ED Attending Note
-
Portions of this chart may have been created with voice recognition software.� Occasional wrong word or��sound alike� substitutions may have occurred due to the inherent limitations of voice recognition software.
Discharge Plan
Departure
Patient Disposition: Admit
Date of Disposition: 12/07/23
Time of Disposition: 13:47
Admit to: IMU
Presentation/result/management discussed w/ accepting MD/DO: Hospitalist
Patient with high blood pressure during this ER visit?: Yes
Condition: Good
Discharge Problem:
Syncope, Bradycardia, sinus
Instructions: Syncope (Fainting) (DC), BLOOD PRESSURE
Prescriptions:
No Action
acetaminophen 325 mg Tablet
650 mg PO Q4HPRN PRN (Reason: mild pain)
Triple Antibiotic 3.5mg-400 unit- 5,000 unit/gram Ointment
1 applic TOPICAL TIDPRN PRN (Reason: prevent infection)
Rx Instructions:
apply to cuts and abrasions
risperidone 0.25 mg Tablet
0.25 mg PO HS
therapeutic multivitamin Tablet
1 tab PO HS
levothyroxine 75 mcg Tablet
75 mcg PO DAILY
lorazepam 0.5 mg Tablet
0.5 mg PO DAILYPRN PRN (Reason: take prior to dental/vision procedure)
tacrolimus 0.1 % Ointment
1 applic TOPICAL BIDPRN PRN (Reason: eczema)
ibuprofen 400 mg Tablet
400 mg PO Q6HPRN PRN (Reason: mild pain)
Ear Wax Drops 6.5 % Drops
4 drp EACH EAR WE@1999
docusate sodium 100 mg Capsule
100 mg PO BID
bismuth subsalicylate [Pepto-Bismol] 262 mg Tablet,Chewable
2 tab PO HSPRN PRN (Reason: diarrhea/upset stomach)
alclometasone 0.05 % Ointment
1 applic TOPICAL BIDPRN PRN (Reason: itch/rash)
Rx Instructions:
apply to arms and neck
dextromethorphan-guaifenesin 30-600 mg Tablet Extended Release 12 Hr
1 tab PO [id number] PRN (Reason: cough and conjestion)
ketoconazole 2 % Cream
1 applic TOPICAL BID
Rx Instructions:
apply to plantar and dorsal of both feet
fluticasone propionate 50 mcg/actuation [place],Suspension
2 spray INTRANASAL HS
polyethylene glycol 3350 17 GRAMS powder in packet
17 grams PO HS
Referrals:
Elisa Panchal CRNP [Family Provider] -
Azael Stewart MD [Active] - Call in 1-3 days for appt
Interventions
Interventions:
*Risk Screen - Suicide Last Done: 12/07/23 11:22
*General Assessment Last Done: 12/07/23 11:22
*Neglect/Abuse Screening Last Done: 12/07/23 11:22
*ED COVID-19 Vaccine History Last Done: 12/07/23 11:22
ED- Neurological Assessment Last Done: 12/07/23 11:55
ED Swallowing Screen Last Done: 12/07/23 11:55
Discharge Date and Time
Print Language: [place]
[2023-12-07 12:17] LABS: % Basophils 0.8 % (0-2); % Immature Granulocytes 0.6 % (0-0.5); % Lymphocytes 18.6 % (20.5-51.1); % Monocytes 8.8 % (1.7-9.3); % Neutrophils 70.2 % (42.2-75.2); Absolute Eosinophils 0.1 10^3/uL (0-0.7); Absolute Lymphocytes 0.9 10^3/uL (1.2-3.4); Absolute Monocytes 0.4 10^3/uL (0.1-0.6); Absolute Neutrophils 3.4 10^3/uL (1.4-6.5); Hemoglobin 14.2 g/dL (12.0-16.0); Mean Corp Hgb Conc. 33.8 g/dL (33.0-37.0); Mean Corpuscular Hgb 32.4 pg (27.0-31.0); Mean Corpuscular Volume 95.9 fL (81.0-99.0); Mean Platelet Volume 10.7 fL (7.4-10.4); Nucleated Red Blood Cells % 0 %; Platelet Count 187 10^3/uL (130-400); Red Blood Cell Count 4.38 10^6/uL (4.20-5.40); Red Cell Dist. Width 14.1 % (11.5-14.5); White Blood Cell Count 4.8 10^3/uL (4.8-10.8)
[2023-12-07 12:39] LABS: Blood Urea Nitrogen 14 mg/dl (7-17); Calcium 8.6 mg/dl (8.4-10.2); Carbon Dioxide 26 mmol/L (22-30); Chloride 104 mmol/L (98-107); Glucose 85 mg/dl (70-99); Sodium 135 mmol/L (135-145); eGFR > 60.00
--- NOTE | 2023-12-07 14:35 | PHANOTE ---
MED REC NOTE- Awaiting detention to fax over med list since the aid took it home with home
--- NOTE | 2023-12-07 15:04 | HPS.HSE ---
Addendum entered and electronically signed by Randy Irene MD 12/07/23 18:54:
Also noticed discussions of hospice by cardiology so will get CM/hospice consult.
Addendum entered and electronically signed by Randy Irene MD 12/07/23 18:24:
Correction--> No increased LFT upon admission-->cancel US and HIDA scan and obtain basic LFT.
Original Note:
Family Physician
-
Family Physician: TESSA Proctor
Chief Complaint
-
Syncope
History of Present Illness
Patient 58 years old female history of Down syndrome, dementia, hypothyroidism, psoriasis, multiple other medical problem, came into the hospital after syncope event. Most of information gathered from ER staff, caregivers, and medical records since
patient unable to give me accurate information due to her dementia. Patient baseline appears to be nonverbal but able to react to people that she knows in an effusive way. Patient had an event where she became less responsive and bradycardic. Per
reports, she was on a couch and she became unresponsive. Heart rate has dropped as low as in the 40s. Patient also was hospitalized from 11/16 until 11/18 here in our hospital for syncope presumed to be vasovagal and episode of bradycardia as well
and at the time evaluated by hospitalist and concrete batch plant operator and was discharged back to long term. This time CT scan of the head unremarkable for acute pathology. She was referred to hospitalist for further evaluation.
Medical History
Past Medical History
Past Medical History: Reports Other (Hypothyroidism, Down syndrome, dementia, psoriasis, mitral regurgitation, aortic regurgitation, GERD, dysphagia)
Past Surgical History: Reports None
Social History
Unable to obtain full social history at this time due to: Dementia
Tobacco: Non-smoker
Alcohol: None
Drug: None
Family History
Family History: Not pertinent
Allergies / Home Medications
Allergies reflects when Allergies were last updated in [employer].
Home Medications with original date entered in [employer]
Allergy/Medication List:
Allergies
Allergy/AdvReac Type Severity Reaction Status Date / Time
Penicillins Allergy Unknown Verified 11/17/23 07:43
Home Medications
acetaminophen 325 mg tablet 650 mg PO Q4HPRN PRN mild pain 11/17/23
alclometasone 0.05 % topical ointment 1 applic topical BIDPRN PRN itch/rash 11/17/23
fluticasone propionate 50 mcg/actuation nasal spray,suspension 2 spray intranasal HS Congestion 11/17/23
ketoconazole 2 % topical cream 1 applic topical BID plantar and dorsal feet 11/17/23
levothyroxine 75 mcg tablet 75 mcg PO DAILY Thyroid 11/17/23
lorazepam 0.5 mg tablet 0.5 mg PO DAILYPRN PRN take prior to dental/vision procedure 11/17/23
risperidone 0.25 mg tablet 0.25 mg PO HS Neurological Condition 11/17/23
tacrolimus 0.1 % topical ointment 1 applic topical BIDPRN PRN eczema 11/17/23
therapeutic multivitamin 1 tab PO HS Supplement 11/17/23
bismuth subsalicylate 262 mg/15 mL oral suspension (Pepto-Bismol) 524 mg PO QPMPRN PRN gerd 12/07/23
carbamide peroxide 6.5 % ear drops (Debrox) 4 drp otic (ear) WE 12/07/23
dextromethorphan-guaifenesin 30 mg-600 mg tablet extended lahyadi07 hr 1 tab PO [id number] PRN cough 12/07/23
dimethicone 1.2 %-colloidal oatmeal lotion (Aveeno Daily Moisturizing) 1 ea topical BID 12/07/23
docusate sodium 100 mg capsule (Colace) 100 mg PO BID 12/07/23
food supplemt, lactose-reduced (Ensure oral liquid) 1 ea PO BID 12/07/23
ibuprofen 200 mg tablet (Advil) 400 mg PO Q6HPRN PRN mild pain 12/07/23
neomycin-bacitracn Zn-polymyxn 3.5 mg-400 unit-5,000 unit top oint pkt (Triple Antibiotic) 1 applic topical TIDPRN PRN cuts and abrasions 12/07/23
polyethylene glycol 3350 17 gram oral powder packet (Miralax) 17 g PO HS 12/07/23
sunscreen topical ointment 1 ea topical DAILYPRN PRN dry lips 12/07/23
Review of Systems
-
Unable to obtain full review of systems at this time due to: Dementia
A 12 point ROS was completed and negative except as noted: Yes
Physical Exam
Vital Signs
Temp Pulse Resp BP Pulse Ox
98.7 F 49 14 120/61 97
12/07/23 11:22 12/07/23 14:15 12/07/23 14:15 12/07/23 14:00 12/07/23 14:15
Physical exam:
General: Chronically ill and No Apparent Distress
HEENT: Normocephalic, Atraumatic and Moist Mucous Membranes
Respiratory: Clear to Auscultation; Negative Wheezes, Rales or Rhonchi
Cardiac: Regular Rhythm, bradycardic, and S1/S2
GI: Soft, Nontender and Nondistended
Musculoskeletal: No Clubbing, No Cyanosis and No Edema
Neuro: Awake, Alert and Oriented
Psych: Calm
Physical Exam
General: Other
Laboratory Results
-
12/07/23 11:49
12/07/23 11:49
Laboratory Results
Total Bilirubin Cancelled 12/07/23 11:49
AST Cancelled 12/07/23 11:49
ALT Cancelled 12/07/23 11:49
Alkaline Phosphatase Cancelled 12/07/23 11:49
Impression/Plan
-
IMPRESSION:
Patient 58 years old female history of Down syndrome, dementia, presented with bradycardia and syncope.
Impression:
Syncope
Sinus bradycardia
Altered mental status
Hemolysis sample for potassium
Elevated liver function tests
Conditions prior to presentation:
Down syndrome-not known congenital heart disease
Hypothyroidism
Psoriasis
Mitral and aortic regurgitation
GERD
History of cholelithiasis
PLAN:
Cardiac monitoring
Twelve-lead EKG interpreted as sinus bradycardia in the 50s, no significant blocks, RSR pattern V1, QRS 84 ms, QTc 447.
Seen CT scan of the head and no acute intracranial abnormality.
Avoid AV reese agents
Repeat K
Cardiology consult
Whether she need a PPM or not would defer to cardio and needs to contemplate in the setting of life expectancy and Qol
Trend LFTs
Obtain repeat ultrasound of right upper quadrant and might consider HIDA scan
Obtain TSH
Obtain UA
Lovenox SQ for DVT prophylaxis
CODE STATUS DNR
Will give further recommendations based on clinical course
Time spent 75-minute
--- NOTE | 2023-12-07 15:12 | CON.CAR ---
Addendum entered and electronically signed by Fernando Kiser MD 12/07/23 16:35:
I saw and examined the patient.
The MIDDLE SCHOOL COMBINATION TEACHER or PA's note was reviewed and I agree with the note.
Comment: General: Well developed, well nourished in NAD.
Neck: Supple, no JVD, HJR, carotids +2 B/L, no bruits bilaterally.
Heart: Non displaced PMI, RRR, no murmurs, No S3, S4, no rubs.
Lungs: Clear to auscultation bilaterally, no wheeze, rhonchi, rubs bilaterally,
normal expiratory phase.
Extremities: No clubbing, cyanosis or edema bilaterally.
Neuro: Grossly nonfocal, awake, alert and oriented x3.
Carmenza has history of Down syndrome, dementia, hypothyroidism, GERD, much regurgitation, aortic insufficiency. She presented to [facility] on 11/16 after syncopal episode. She had episode of vomiting and lost consciousness. Was felt to be
vasovagal with some bradycardia during ER stay. She was treated conservatively given her comorbid illnesses. She had a second episode of syncope earlier today and was unresponsive per caregiver with heavy breathing. Heart rate via pulse ox was
noted to be low and was brought to the ER. In the ER had sinus bradycardia in the 20s.
Of note after discussion with caregivers and patient having palliative care status the plan is to admit and transition to hospice. She is not a candidate for pacer implant. Discussed with patient's caregiver at the bedside.
Original Note:
Consultation
Consultation Request
Date/Time Consultation Performed: 12/07/23
Requesting Provider: Dr. Irene
Performing Provider: Olga Fairbanks PA-C for Dr. Kiser
Reason for Consultation: bradycardia, syncope
Medical History
-
Chief Complaint: bradycardia, syncope
History of Present Illness:
HPI: Carmenza is a 58 year old female with PMH of down syndrome, hypothyroidism, dementia, GERD, mitral regurgitation, and aortic regurgitation who presented to [facility] 11/17/23 after syncopal episode at her skilled nursing. She reportedly had an episode of
vomiting and then lost consciousness. Presumed vasovagal in etiology although with some bradycardia during stay as well. She was not on av reese blocking agents and given her comorbidities plan was for conservative mgmt. She had another episode of
syncope today. She was lying on the couch napping and became 'unresponsive' per caregiver with heavy breathing. Her HR via pulse ox was noted to be low. 911 was called. She is noted to be in SB in ER at times as low as 20s. No significant pauses
noted. Patient relatively asymptomatic here. She is on palliative care as OP.
PMH:
Syncope 11/17/23
Down syndrome
Hypothyroidism
Dementia
Dysphagia
Psoriasis
Mitral regurgitation
Aortic regurgitation
GERD
Past Medical History
Past Medical History: Other
Social History
Tobacco: Non-Smoker
Alcohol: None
Drug: None
Personal: Single
Living: Other ([facility])
Family History
Family History: Reviewed & Not Pertinent
Allergies / Home Medications
Allergy/AdvReac Type Severity Reaction Status Date / Time
Penicillins Allergy Unknown Verified 11/17/23 07:43
�Medication �Instructions �Recorded �Confirmed �Type
acetaminophen 325 mg tablet 650 mg PO Q4HPRN PRN mild pain 11/17/23 12/07/23 History
alclometasone 0.05 % topical 1 applic topical BIDPRN PRN 11/17/23 12/07/23 History
ointment itch/rash
fluticasone propionate 50 2 spray intranasal HS Congestion 11/17/23 12/07/23 History
mcg/actuation nasal
spray,suspension
ketoconazole 2 % topical cream 1 applic topical BID plantar and 11/17/23 12/07/23 History
dorsal feet
levothyroxine 75 mcg tablet 75 mcg PO DAILY Thyroid 11/17/23 12/07/23 History
lorazepam 0.5 mg tablet 0.5 mg PO DAILYPRN PRN take prior 11/17/23 12/07/23 History
to dental/vision procedure
risperidone 0.25 mg tablet 0.25 mg PO HS Neurological 11/17/23 12/07/23 History
Condition
tacrolimus 0.1 % topical ointment 1 applic topical BIDPRN PRN eczema 11/17/23 12/07/23 History
therapeutic multivitamin 1 tab PO HS Supplement 11/17/23 12/07/23 History
bismuth subsalicylate 262 mg/15 mL 524 mg PO QPMPRN PRN gerd 12/07/23 12/07/23 History
oral suspension (Pepto-Bismol)
carbamide peroxide 6.5 % ear drops 4 drp otic (ear) WE 12/07/23 12/07/23 History
(Debrox)
dextromethorphan-guaifenesin 30 1 tab PO [id number] PRN cough 12/07/23 12/07/23 History
mg-600 mg tablet extended
[id number] hr
dimethicone 1.2 %-colloidal 1 ea topical BID 12/07/23 12/07/23 History
oatmeal lotion (Aveeno Daily
Moisturizing)
docusate sodium 100 mg capsule 100 mg PO BID 12/07/23 12/07/23 History
(Colace)
food supplemt, lactose-reduced 1 ea PO BID 12/07/23 12/07/23 History
(Ensure oral liquid)
ibuprofen 200 mg tablet (Advil) 400 mg PO Q6HPRN PRN mild pain 12/07/23 12/07/23 History
neomycin-bacitracn Zn-polymyxn 3.5 1 applic topical TIDPRN PRN cuts 12/07/23 12/07/23 History
mg-400 unit-5,000 unit top oint and abrasions
pkt (Triple Antibiotic)
polyethylene glycol 3350 17 gram 17 g PO HS 12/07/23 12/07/23 History
oral powder packet (Miralax)
sunscreen topical ointment 1 ea topical DAILYPRN PRN dry lips 12/07/23 12/07/23 History
Review of Systems
-
History Source: Other (health aide)
Physical Exam
Vital Signs
Temp Pulse Resp BP Pulse Ox
98.7 F 49 14 120/61 97
12/07/23 11:22 12/07/23 14:15 12/07/23 14:15 12/07/23 14:00 12/07/23 14:15
Lab Results
12/07/23 11:49
12/07/23 11:49
Physical Exam
General: No Apparent Distress and Comfortable
HEENT: Normocephalic, Anicteric and Moist Mucous Membranes
Respiratory: Clear and Non Labored Respirations
Cardiac: S1/S2, Regular Rhythm and Other (iona)
GI: Soft, Non Tender, Non Distended and Normal Bowel Sounds
Musculoskeletal: No Clubbing and No Cyanosis
Skin: Warm and Dry
Neuro: Awake
Impression / Plan
-
Primary Brick Stacker: none
Assessment:
Witnessed unresponsive episode with concern for symptomatic bradycardia as etiology 12/07/23
Syncope 11/17/23
Down syndrome
Hypothyroidism
Dementia
Dysphagia
Psoriasis
Mitral regurgitation
Aortic regurgitation
GERD
ECHO 11/17/2023: EF 55 to 60%, moderate AR, moderate TR, trace ID
Plan:
-Patient is a 58-year-old female with recent admission for syncopal episode felt to be vasovagal in etiology 11/17/2023. Now presents back to [facility] due to witnessed unresponsive episode with concern for symptomatic bradycardia as
etiology
-Remains bradycardic in ER with variable heart rates, briefly as low as 20s. 1 series of 3 beats with retrograde P waves on review of tele. since in ER, has not demonstrated recurrent episodes of unresponsiveness and appears asymptomatic
-Does not appear to be on any medical therapy precipitating bradycardia
-Discussed that treatment of symptomatic bradycardia would be pacemaker. After discussion with both caregiver in room and supervisor paper products Suzanne via telephone, all in agreement with plan for conservative therapy and no invasive procedures, which
appears appropriate. Fancy Needleworker states she will reach out to care team and patient's sister. She is currently on palliative care and is DNR. Plan would be to transition to comfort/hospice level care. CM to follow
Data Reviewed
-
EKG: Tracing Personally Visualized and interpreted
Medical Tests (Nuc Med, Echo etc): Report Reviewed by me
Labs: Labs Reviewed by me
Old Records: Reviewed
[2023-12-07 15:55] LABS: Blood Urea Nitrogen 12 mg/dl (7-17); Calcium 8.8 mg/dl (8.4-10.2); Carbon Dioxide 29 mmol/L (22-30); Chloride 103 mmol/L (98-107); Glucose 93 mg/dl (70-99); Potassium 4.3 mmol/L (3.5-5.1); Sodium 137 mmol/L (135-145); eGFR > 60.00
[2023-12-07] MEDS: LOVENOX 40 MG SC (17:28)
--- NOTE | 2023-12-07 17:53 | PTCARENOTE ---
pt heavily incontinent of urine. UA ordered. this nurse used sterile procedure process to straight cath pt at bedside with assist of two. sample sent and pt voided total of 250ml of yellow, cloudy urine. pt caregiver also at bedside and assisted. pt
responded best to one at a time explanation of process but did still get upset with catheterization.
[2023-12-07 17:56] LABS: Lactic Acid 1.5 mmol/L (0.7-2.0)
[2023-12-07 18:00] LABS: Urine Albumin Negative (Neg - Trace); Urine Bilirubin Negative (Negative); Urine Character Clear (Clear); Urine Color Yellow; Urine Glucose Negative (Negative); Urine Ketone Negative (Negative); Urine Leukocyte Trace (Negative); Urine Nitrite Negative (Negative); Urine Occult Blood Negative (Negative); Urine Urobilinogen Negative (Neg - 1+)
--- NOTE | 2023-12-07 18:00 | PTCARENOTE ---
Received patient from ED into room 2120. Patient with hx Down Syndrome and dementia, majority of admission questions and history obtained from caregiver at bedside. Patient AAO to self, VSS, sinus bradycardia on tele monitor, assist x2-3 to turn and
reposition in bed, uncooperative/agitated with care and movement at times. Patient maintained on aspiration precautions d/t chronic dysphagia from caregiver. Per caregiver, [facility]. MD made aware, US abdomen and
HIDA scan cancelled, baseline LFTs ordered. Patient maintained on fall risk precautions with bed alarm in place.
[2023-12-07 18:12] LABS: Urine Red Blood Cell 0-2 /HPF (0-2); Urine Squamous Cell 0-2 /LPF (Few); Urine White Cell 0-2 /HPF (0-5)
[2023-12-07 18:13] LABS: Urine Bacteria Moderate (Negative)
[2023-12-07 19:13] LABS: ALT (SGPT) 56 U/L (0-35); AST (SGOT) 50 U/L (14-36); Albumin 3.6 g/dl (3.5-5.0); Alkaline Phosphatase 172 U/L (38-126); Direct Bilirubin 0.2 mg/dl (0.0-0.4); Total Bilirubin 0.5 mg/dl (0.2-1.3); Total Protein 6.3 g/dl (6.3-8.2)
[2023-12-08 03:19] VITALS: BP 138/58
[2023-12-08 06:00] VITALS: BMI 22.7
[2023-12-08 06:19] LABS: Hematocrit 40.9 % (37.0-47.0); Hemoglobin 14.1 g/dL (12.0-16.0); Mean Corp Hgb Conc. 34.5 g/dL (33.0-37.0); Mean Corpuscular Hgb 32.5 pg (27.0-31.0); Mean Corpuscular Volume 94.2 fL (81.0-99.0); Mean Platelet Volume 9.4 fL (7.4-10.4); Platelet Count 223 10^3/uL (130-400); Red Blood Cell Count 4.34 10^6/uL (4.20-5.40); Red Cell Dist. Width 13.6 % (11.5-14.5); White Blood Cell Count 3.8 10^3/uL (4.8-10.8)
[2023-12-08 06:42] LABS: ALT (SGPT) 58 U/L (0-35); AST (SGOT) 49 U/L (14-36); Albumin 3.9 g/dl (3.5-5.0); Alkaline Phosphatase 206 U/L (38-126); Blood Urea Nitrogen 11 mg/dl (7-17); Calcium 9.3 mg/dl (8.4-10.2); Carbon Dioxide 29 mmol/L (22-30); Chloride 105 mmol/L (98-107); Direct Bilirubin 0.2 mg/dl (0.0-0.4); Estimated Creatinine Clearance 58 ml/min; Glucose 97 mg/dl (70-99); Potassium 4.3 mmol/L (3.5-5.1); Sodium 140 mmol/L (135-145); Total Bilirubin 0.7 mg/dl (0.2-1.3); Total Protein 6.8 g/dl (6.3-8.2); eGFR > 60.00
[2023-12-08 07:01] VITALS: BP 138/83
--- NOTE | 2023-12-08 08:55 | W.PN.HOSP.TC ---
Today's Communication/Plan
-
Hospice consult pending.
Assessment / Plan
Assessment / Plan
Physical exam:
General: Acutely and chronically ill and No Apparent Distress
HEENT: Normocephalic, Atraumatic and Moist Mucous Membranes
Respiratory: Clear to Auscultation; Negative Wheezes, Rales or Rhonchi
Cardiac: Regular Rhythm, bradycardic, and S1/S2
GI: Soft, Nontender and Nondistended
Musculoskeletal: No Clubbing, No Cyanosis and No Edema
Neuro: Awake, Alert and Oriented
Psych: Calm
A/P:
Impression:
Syncope
Sinus bradycardia
Altered mental status
Elevated liver function tests
Conditions prior to presentation:
Down syndrome-not known congenital heart disease
Hypothyroidism
Psoriasis
Mitral and aortic regurgitation
GERD
History of cholelithiasis
PLAN:
Cardiology evaluated the patient and recommended hospice care and she is not a candidate for pacer implant.
Hospice consulted
Cardiac monitoring
Seen CT scan of the head and no acute intracranial abnormality.
Avoid AV reese agents
TSH 2.9
UA unremarkable
LFTs elevated but given discussions of goals of care and hospice hold off on any further workup.
Lovenox SQ for DVT prophylaxis
CODE STATUS DNR
Anticipated Discharge: 24 - 48 hours
Subjective/Interval History
-
Date of Service: December 08, 2023
Patient seen and examined. Patient alert and much better spirit today.
Objective Data
-
Labs:
Laboratory Results
12/08/23
06:10
WBC 3.8 L
Hgb 14.1
Hct 40.9
Plt Count 223
Sodium 140
Potassium 4.3
Chloride 105
Carbon Dioxide 29
BUN 11
Creatinine 0.6
Glucose 97
Calcium 9.3
Total Bilirubin 0.7
AST 49 H
ALT 58 H
Alkaline Phosphatase 206 H
Vital Signs:
Vital Signs
Temp Pulse Resp BP Pulse Ox
97.4 F 81 18 138/83 97
12/08/23 07:01 12/08/23 07:01 12/08/23 07:01 12/08/23 07:01 12/08/23 07:01
I&O
12/07/23 12/08/23 12/09/23
06:59 06:59 06:59
Intake Total 120 / 120
Output Total 500 / 500
Balance -380 / -380
[2023-12-08 11:00] VITALS: BP 115/90
[2023-12-08 15:00] VITALS: BP 129/66
[2023-12-08] MEDS: LOVENOX 40 MG SC (17:07)
[2023-12-08 19:00] VITALS: BP 145/59
[2023-12-08 23:25] VITALS: BP 125/56
[2023-12-09 03:14] VITALS: BP 120/68
[2023-12-09 05:25] VITALS: BMI 22.4
[2023-12-09 07:30] VITALS: BP 134/69
--- NOTE | 2023-12-09 08:36 | W.PN.HOSP.TC ---
Addendum entered and electronically signed by Randy Irene MD 12/09/23 15:43:
Acute metabolic encephalopathy due to bradycardia/sick sinus syndrome.
Original Note:
Today's Communication/Plan
-
Discharge planning today.
Assessment / Plan
Assessment / Plan
Physical exam:
General: Acutely and chronically ill and No Apparent Distress
HEENT: Normocephalic, Atraumatic and Moist Mucous Membranes
Respiratory: Clear to Auscultation; Negative Wheezes, Rales or Rhonchi
Cardiac: Regular Rhythm, bradycardic, and S1/S2
GI: Soft, Nontender and Nondistended
Musculoskeletal: No Clubbing, No Cyanosis and No Edema
Neuro: Awake, Alert and Oriented
Psych: Calm
A/P:
Impression:
Syncope
Sinus bradycardia
Altered mental status
Elevated liver function tests
Conditions prior to presentation:
Down syndrome-not known congenital heart disease
Hypothyroidism
Psoriasis
Mitral and aortic regurgitation
GERD
History of cholelithiasis
PLAN:
Discussed with pillowcase turner today and plan to go to hospice today.
Cardiology evaluated the patient and recommended hospice care and she is not a candidate for pacer implant.
Hospice consulted
Cardiac monitoring
Seen CT scan of the head and no acute intracranial abnormality.
Avoid AV reese agents
TSH 2.9
UA unremarkable
LFTs elevated but given discussions of goals of care and hospice hold off on any further workup.
Lovenox SQ for DVT prophylaxis
CODE STATUS DNR
Anticipated Discharge: Today
Subjective/Interval History
-
Date of Service: December 09, 2023
Patient seen and examined.
Objective Data
-
Vital Signs:
Vital Signs
Temp Pulse Resp BP Pulse Ox
97.8 F 62 14 134/69 96
12/09/23 07:30 12/09/23 07:30 12/09/23 07:30 12/09/23 07:30 12/09/23 07:30
I&O
12/08/23 12/09/23 12/10/23
06:59 06:59 06:59
Intake Total 120 / 120 240 / 240
Output Total 500 / 500
Balance -380 / -380 240 / 240
--- NOTE | 2023-12-09 10:32 | CM ---
Attending requested CM consult for hospice referral. Referral forwarded to Hospice Team.
[2023-12-09 11:05] VITALS: BP 150/105
--- NOTE | 2023-12-09 12:00 | HOSPNOTE ---
Referral received. Patient is hospice appropriate. Spoke to Braulio who is the nurse taking care of patient at [facility]. Consents sent electronically. Attending and CM updated- awaiting ambulance transport time.
--- NOTE | 2023-12-09 12:35 | W.DCSUMMARY ---
Discharge Summary
Discharge Data
Date of Admission: 12/09/23
Date of Discharge: 12/09/23
-
Pending Results: No
Hospital Course
Patient 58 years old female history of Down syndrome, dementia, hypothyroidism, GERD, aortic and mitral regurgitation, presented to the hospital syncope of in the setting of bradycardia. Patient had a prior hospitalization for bradycardia and this
time she was noted to be bradycardic again into the 20s. Cardiology consulted. Cardiology felt that she was not a candidate for pacemaker and discussed with caregivers and recommended hospice care. Patient had been on palliative care and she is
going to be transition to hospice. Hospice was consulted. Patient will be discharged to hospice today.
Discharge duration: 31 minutes
Discharge Plan
-
Patient Disposition: Home with Hospice
Discharge Diagnosis/Procedures: Sinus bradycardia with sick sinus syndrome. Down syndrome. Dementia. Elevated liver function tests.
Diet: Regular
Activity: As tolerated
Referrals:
Elisa Panchal CRNP [Family Provider] - in less than 1 week
Prescriptions:
Continued
acetaminophen 325 mg Tablet
650 mg PO Q4HPRN PRN (Reason: mild pain)
risperidone 0.25 mg Tablet
0.25 mg PO HS
therapeutic multivitamin Tablet
1 tab PO HS
levothyroxine 75 mcg Tablet
75 mcg PO DAILY
lorazepam 0.5 mg Tablet
0.5 mg PO DAILYPRN PRN (Reason: take prior to dental/vision procedure)
tacrolimus 0.1 % Ointment
1 applic TOPICAL BIDPRN PRN (Reason: eczema)
alclometasone 0.05 % Ointment
1 applic TOPICAL BIDPRN PRN (Reason: itch/rash)
Rx Instructions:
apply to arms and neck
ketoconazole 2 % Cream
1 applic TOPICAL BID
Rx Instructions:
apply to plantar and dorsal of both feet
fluticasone propionate 50 mcg/actuation [place],Suspension
2 spray INTRANASAL HS
polyethylene glycol 3350 [Miralax] 17 gram Powder In Packet
17 g PO HS
bismuth subsalicylate [Pepto-Bismol] 262 mg/15 mL Suspension
524 mg PO QPMPRN PRN (Reason: gerd)
ibuprofen [Advil] 200 mg Tablet
400 mg PO Q6HPRN PRN (Reason: mild pain)
Debrox 6.5 % Drops
4 drp OTIC (EAR) WE
docusate sodium [Colace] 100 mg Capsule
100 mg PO BID
dextromethorphan-guaifenesin 30-600 mg Tablet Extended Release 12 Hr
1 tab PO [id number] PRN (Reason: cough)
Ensure Liquid
1 ea PO BID
sunscreen Ointment
1 ea TOPICAL DAILYPRN PRN (Reason: dry lips)
Triple Antibiotic 3.5-400-5,000 [id number] Ointment In Packet
1 applic TOPICAL TIDPRN PRN (Reason: cuts and abrasions)
Aveeno Daily Moisturizing 1.2 % Lotion
1 ea TOPICAL BID
Discharge Orders:
Discharge Patient (As Directed); Ordered 12/09/23
Ordered By: Randy Irene
Discharge Date and Time
Discharge Date/Time: 12/09/23 15:12
Print Language: CROATIAN
--- NOTE | 2023-12-09 12:41 | PN.CDI ---
CDI
- -
CDI:
Physician Documentation Request
Admit Date: 12/07/23 15:21
Dear Doctor Irene,
Please review the following and provide your response in the progress notes.
Clinical Indicators:
- 12/08 PN 'Altered mental status'
- per H&P 'was on a couch and she became unresponsive...Heart rate has dropped as low as in the 40s'
- 12/06 EMS report 'Unresponsive 58 YO pt found sitting upright on couch'
- 'Pt's mentation improves during tx'
- 12/06 CT Head 'No acute intracranial abnormalities'
Please clarify in the Progress Notes which is the most likely etiology of the altered mental status.
Encephalopathy - indicate type, such as metabolic, toxic, septic, alcoholic, anoxic, hypertensive etc. due to a specific condition such as UTI, CVA, hyponatremia etc.
Dementia with acute delirium - indicate type fo dementia, such as Alzheimer's, senile, vascular, Lewy body etc.
Acute or subacute confusional state due to (specify known or suspected etiology)
Other
Use of terms such as suspected, likely, concern for, or probable (associated with a specific diagnosis that is being evaluated, monitored, or treated as if it exists) are acceptable and can be coded in the inpatient setting, when documented at the
time of discharge.
Thank you,
Mandy Amado RN
CDI Specialist
Please use your independent medical judgment in providing your response.
--- NOTE | 2023-12-09 13:00 | CM ---
Patient has been cleared for discharge back to [facility] with initiation of Hospice upon arrival. Ambulance transport scheduled for 1:00 PM. Primary contact notified.
NURSE TO NURSE REPORT # [phone]
FAX # [phone]
--- NOTE | 2023-12-09 13:21 | CM ---
Patient has been cleared for discharge back to [facility] with initiation of Hospice upon arrival. Ambulance transport scheduled for 3:00 PM. Primary contact notified.
NURSE TO NURSE REPORT # [phone]
FAX # [phone]
[2023-12-09 14:25] VITALS: BP 114/48
== END 2023-12-09 15:12 | disposition hospice, home (50) | DRG 308 ==
LOC: 2 NORTH 12:14
PROVIDERS: ADMITTING PHYSICIAN Hospitalist; CONSULT PHYSICIAN Internal Medicine Cardiovascular Disease; EMERGENCY PHYSICIAN Emergency Medicine; FAMILY PHYSICIAN Nurse Practitioner Adult Health
DX: I49.5 Sick sinus syndrome (principal); G93.41 Metabolic encephalopathy; F03.90 Unspecified dementia, unspecified severity, without behavioral disturbance, psychotic disturbance, mood disturbance, and anxiety; E03.9 Hypothyroidism, unspecified; I08.0 Rheumatic disorders of both mitral and aortic valves; Z66 Do not resuscitate; Q90.9 Down syndrome, unspecified; L40.9 Psoriasis, unspecified; K21.9 Gastro-esophageal reflux disease without esophagitis; R13.10 Dysphagia, unspecified; R79.89 Other specified abnormal findings of blood chemistry; Z79.890 Hormone replacement therapy; Z79.899 Other long term (current) drug therapy; Z87.19 Personal history of other diseases of the digestive system; Z88.0 Allergy status to penicillin
CPT/HCPCS: 70450; 80048; 80053; 80076; 81003; 81015; 82248; 82962; 83605; 84443; 85025; 85027; 87086; 93005; 99285